=== PATIENT | male | born 1940 | race Caucasian/White ===

== ENCOUNTER 2018-06-13 01:45 | Inpatient (IN) | payer MEDICARE, OTHER ==
[2018-06-13] MEDS ORDERED: SOD CHLORIDE 0.9% 1,000 ML IV (02:45)
[2018-06-13] MEDS ORDERED: NACL 0.9% 3 ML SYG IV (03:00)
[2018-06-13] MEDS ORDERED: ACETAMINOPHEN 325 MG TAB PO (03:00)
[2018-06-13] MEDS ORDERED: ONDANSETRON 4 MG INJ IV (03:00)
[2018-06-13 04:36] LABS: ADD MAN DIFF? NO
[2018-06-13 04:39] LABS: WHITE BLOOD COUNT 8.7 10^3/ul (4.8-10.8)
[2018-06-13 04:39] LABS: ABNORMAL IP MESSAGE 1; BASOPHILS % 0.1 % (0.0-2.0); HEMATOCRIT 40.4 % (42.0-52.0); HEMOGLOBIN 13.3 g/dl (14.0-18.0); LYMPHOCYTES # 0.6 10^3/ul (0.8-2.9); LYMPHOCYTES % 6.6 % (15.0-51.0); MEAN CORPUSCULAR HEMOGLOBIN 30.7 pg (29.0-33.0); MEAN CORPUSCULAR HGB CONC 32.9 g/dl (32.0-37.0); MEAN CORPUSCULAR VOLUME 93.3 fl (82.0-101.0); MEAN PLATELET VOLUME 11.9 fl (7.4-10.4); MONOCYTE # 0.4 10^3/ul (0.3-0.9); MONOCYTES % 4.4 % (0.0-11.0); NEUTROPHIL # 7.6 10^3/ul (1.6-7.5); NEUTROPHILS % 87.8 % (39.0-77.0); NUCLEATED RED BLOOD CELLS% 0.2 /100WBC (0.0-0.0); PLATELET COUNT 258 10^3/UL (140-415); POSITIVE DIFF @See below; RED BLOOD COUNT 4.33 10^6/ul (4.70-6.10); RED CELL DISTRIBUTION WIDTH 20.5 % (11.5-14.5)
[2018-06-13 05:00] LABS: ALANINE AMINOTRANSFERASE 42 IU/L (13-69); ALBUMIN 2.8 g/dl (3.3-4.9); ALBUMIN/GLOBULIN RATIO 0.93; ALKALINE PHOSPHATASE 43 IU/L (42-121); ANION GAP 14 (8-16); ASPARTATE AMINO TRANSFERASE 39 IU/L (15-46); BILIRUBIN,INDIRECT 0.7 mg/dl (0-1.1); BILIRUBIN,TOTAL 0.7 mg/dl (0.2-1.3); BLOOD UREA NITROGEN 59 mg/dl (7-20); CALCIUM 7.7 mg/dl (8.4-10.2); CARBON DIOXIDE 21 mmol/L (21-31); CHLORIDE 119 mmol/L (97-110); CHOL/HDL RATIO 4.4 RATIO; CHOLESTEROL 93 mg/dl (100-200); CREATININE 1.53 mg/dl (0.61-1.24); GLUCOSE 107 mg/dl (70-220); HDL CHOLESTEROL 21 mg/dl (31-75); LDL CHOLESTEROL,CALCULATED 40 mg/dl; MAGNESIUM 2.9 mg/dl (1.7-2.5); SODIUM 151 mmol/L (135-144); TOTAL PROTEIN 5.8 g/dl (6.1-8.1); TRIGLYCERIDES 162 mg/dl (0-149)
[2018-06-13] MEDS: SOD CHLORIDE 0.9% 1,000 ML IV (05:31)
[2018-06-13] MEDS: DEXTROSE 5% 1,000 ML IV (05:31)
[2018-06-13 05:49] LABS: POTASSIUM 2.9 mmol/L (3.5-5.1)
[2018-06-13 05:53] LABS: HEMOGLOBIN A1C 5.8 % (0-5.9)
[2018-06-13] MEDS: CEFTRIAXONE 2 GM/50 ML (PMX) 50 ML IVPB (05:56)
[2018-06-13] MEDS ORDERED: PANTOPRAZOLE 40 MG INJ IV (06:00)
[2018-06-13 06:31] LABS: THYROID STIMULATING HORMONE 0.124 MIU/L (0.465-4.680)
[2018-06-13] MEDS: OCTREOTIDE 1 MG in DEXTROSE 5% 95 ML IV (06:31)
[2018-06-13] MEDS: OCTREOTIDE 50 MCG in SOD CHLORIDE 0.9% 50 ML IVPB (06:31)
[2018-06-13] MEDS: PANTOPRAZOLE IV 80 MG in SOD CHLORIDE 0.9% 100 ML IVPB (06:52)
[2018-06-13] MEDS: PANTOPRAZOLE IV 80 MG in SOD CHLORIDE 0.9% 100 ML IV ×2 (06:52→18:11)
[2018-06-13 09:03] LABS: ADD MAN DIFF? NO
[2018-06-13] MEDS: POTASSIUM CHLORIDE 100 ML IVPB ×4 (09:11→13:53)
[2018-06-13 09:25] LABS: ABNORMAL IP MESSAGE 1; BASOPHILS % 0.3 % (0.0-2.0); HEMATOCRIT 42.7 % (42.0-52.0); HEMOGLOBIN 13.9 g/dl (14.0-18.0); LYMPHOCYTES # 0.4 10^3/ul (0.8-2.9); LYMPHOCYTES % 4.9 % (15.0-51.0); MEAN CORPUSCULAR HEMOGLOBIN 30.3 pg (29.0-33.0); MEAN CORPUSCULAR HGB CONC 32.6 g/dl (32.0-37.0); MEAN CORPUSCULAR VOLUME 93.2 fl (82.0-101.0); MONOCYTE # 0.5 10^3/ul (0.3-0.9); MONOCYTES % 5.1 % (0.0-11.0); NEUTROPHIL # 7.9 10^3/ul (1.6-7.5); NEUTROPHILS % 87.5 % (39.0-77.0); NUCLEATED RED BLOOD CELLS% 0.3 /100WBC (0.0-0.0); PLATELET COUNT 224 10^3/UL (140-415); POSITIVE DIFF @See below; RED BLOOD COUNT 4.58 10^6/ul (4.70-6.10); RED CELL DISTRIBUTION WIDTH 20.4 % (11.5-14.5)
[2018-06-13] MEDS: D5W + KCL 20 MEQ 1,000 ML IV ×2 (09:39→20:01)
[2018-06-13 09:43] LABS: LACTIC ACID 1.7 mmol/L (0.5-2.0)
[2018-06-13 10:24] LABS: OSMOLALITY 331 mOsm/kg (280-295)
[2018-06-13 14:12] LABS: ADD MAN DIFF? NO
[2018-06-13 14:15] LABS: WHITE BLOOD COUNT 8.9 10^3/ul (4.8-10.8)
[2018-06-13 14:15] LABS: ABNORMAL IP MESSAGE 1; BASOPHILS % 0.2 % (0.0-2.0); HEMATOCRIT 41.7 % (42.0-52.0); HEMOGLOBIN 12.9 g/dl (14.0-18.0); LYMPHOCYTES # 0.4 10^3/ul (0.8-2.9); LYMPHOCYTES % 4.1 % (15.0-51.0); MEAN CORPUSCULAR HEMOGLOBIN 30.4 pg (29.0-33.0); MEAN CORPUSCULAR HGB CONC 30.9 g/dl (32.0-37.0); MEAN CORPUSCULAR VOLUME 98.1 fl (82.0-101.0); MEAN PLATELET VOLUME 11.3 fl (7.4-10.4); MONOCYTE # 0.4 10^3/ul (0.3-0.9); NEUTROPHILS % 89.9 % (39.0-77.0); NUCLEATED RED BLOOD CELLS% 0.4 /100WBC (0.0-0.0); PLATELET COUNT 192 10^3/UL (140-415); POSITIVE DIFF @See below; RED BLOOD COUNT 4.25 10^6/ul (4.70-6.10); RED CELL DISTRIBUTION WIDTH 20.5 % (11.5-14.5)
[2018-06-13 14:31] LABS: ANION GAP 12 (8-16); BLOOD UREA NITROGEN 42 mg/dl (7-20); CALCIUM 7.2 mg/dl (8.4-10.2); CARBON DIOXIDE 19 mmol/L (21-31); CHLORIDE 120 mmol/L (97-110); CREATININE 1.02 mg/dl (0.61-1.24); GLUCOSE 170 mg/dl (70-220); POTASSIUM 3.3 mmol/L (3.5-5.1); SODIUM 148 mmol/L (135-144)
[2018-06-13] MEDS: ATORVASTATIN 80 MG TAB PO (20:39)
[2018-06-13 21:35] LABS: ADD MAN DIFF? NO
[2018-06-13 21:38] LABS: ABNORMAL IP MESSAGE 1; HEMATOCRIT 30.6 % (42.0-52.0); HEMOGLOBIN 9.7 g/dl (14.0-18.0); LYMPHOCYTES # 0.3 10^3/ul (0.8-2.9); LYMPHOCYTES % 5.7 % (15.0-51.0); MEAN CORPUSCULAR HGB CONC 31.7 g/dl (32.0-37.0); MEAN CORPUSCULAR VOLUME 94.7 fl (82.0-101.0); MEAN PLATELET VOLUME 11.4 fl (7.4-10.4); MONOCYTE # 0.2 10^3/ul (0.3-0.9); MONOCYTES % 3.7 % (0.0-11.0); NEUTROPHIL # 4.8 10^3/ul (1.6-7.5); NUCLEATED RED BLOOD CELLS # 0.1 10^3/ul (0.0-0.0); NUCLEATED RED BLOOD CELLS% 0.9 /100WBC (0.0-0.0); PLATELET COUNT 144 10^3/UL (140-415); POSITIVE DIFF @See below; RED BLOOD COUNT 3.23 10^6/ul (4.70-6.10); RED CELL DISTRIBUTION WIDTH 20.2 % (11.5-14.5)
[2018-06-13 21:38] LABS: WHITE BLOOD COUNT 5.4 10^3/ul (4.8-10.8)
[2018-06-13 23:05] LABS: ADD UMIC YES; UR ASCORBIC ACID NEGATIVE (NEGATIVE); UR BILIRUBIN (Dip) NEGATIVE (NEGATIVE); UR BLOOD (Dip) 1+ mg/dL (NEGATIVE); UR CLARITY CLEAR (CLEAR); UR COLOR AMBER (YELLOW); UR GLUCOSE (Dip) 1+ mg/dL (NEGATIVE); UR KETONES (Dip) NEGATIVE (NEGATIVE); UR LEUKOCYTE ESTERASE (Dip) TRACE Leu/ul (NEGATIVE); UR MUCUS FEW /HPF (NONE SEEN); UR NITRITE (Dip) NEGATIVE (NEGATIVE); UR RBC 2 /HPF (0-5); UR TOTAL PROTEIN (Dip) NEGATIVE (NEGATIVE); UR UROBILINOGEN (Dip) 2+ mg/dL (NEGATIVE); UR WBC 23 /HPF (0-5)
[2018-06-13 23:11] LABS: SODIUM,URINE RANDOM 28 mmol/L (30-90)
[2018-06-13 23:13] LABS: OSMOLALITY,URINE 741 mOsm/kg (250-1200)
[2018-06-14] MEDS: OCTREOTIDE 1 MG in DEXTROSE 5% 95 ML IV (00:55)
[2018-06-14] MEDS: PANTOPRAZOLE IV 80 MG in SOD CHLORIDE 0.9% 100 ML IV ×2 (03:00→13:00)
[2018-06-14] MEDS: CEFTRIAXONE 2 GM/50 ML (PMX) 50 ML IVPB (04:10)
[2018-06-14] MEDS: D5W + KCL 20 MEQ 1,000 ML IV ×3 (04:11→13:29)
[2018-06-14 07:01] LABS: ANION GAP 9 (8-16); BLOOD UREA NITROGEN 24 mg/dl (7-20); CALCIUM 7.4 mg/dl (8.4-10.2); CARBON DIOXIDE 26 mmol/L (21-31); CHLORIDE 114 mmol/L (97-110); CREATININE 0.78 mg/dl (0.61-1.24); GLUCOSE 147 mg/dl (70-220); POTASSIUM 3.7 mmol/L (3.5-5.1); SODIUM 145 mmol/L (135-144)
[2018-06-14 07:06] LABS: MAGNESIUM 2.5 mg/dl (1.7-2.5)
[2018-06-14 07:06] LABS: PHOSPHORUS 1.5 mg/dl (2.5-4.9)
[2018-06-14] MEDS: PROPOFOL 20 ML (14:56)
[2018-06-14] MEDS: PANTOPRAZOLE 40 MG INJ IV (15:07)
[2018-06-14] MEDS ORDERED: ONDANSETRON 4 MG INJ IV (15:30)
[2018-06-14] MEDS ORDERED: DIPHENHYDRAMINE 50 MG INJ IV (15:30)
[2018-06-14] MEDS ORDERED: hydrALAzine 20 MG INJ IV (15:30)
[2018-06-14] MEDS ORDERED: METOCLOPRAMIDE 10 MG INJ IV (15:30)
[2018-06-14] MEDS ORDERED: LABETALOL HCL 20MG INJ IV (15:30)
[2018-06-14] MEDS ORDERED: MEPERIDINE 25 MG INJ IV (15:30)
[2018-06-14] MEDS ORDERED: MIDAZOLAM 1 MG/ML 2 ML INJ IV (15:30)
[2018-06-14] MEDS ORDERED: EPHEDrine SULFATE 50 MG/5 ML SYG IV (15:30)
[2018-06-14] MEDS ORDERED: FENTAnyl 50 MCG/ML VIAL IV ×3 (15:30)
[2018-06-14] MEDS: POTASSIUM PHOSPHATE 15 MM in SOD CHLORIDE 0.9% 250 ML IVPB (17:00)
[2018-06-14] MEDS: ATORVASTATIN 80 MG TAB PO (22:12)
[2018-06-15] MEDS: D5W + KCL 20 MEQ 1,000 ML IV ×2 (01:00→10:45)
[2018-06-15] MEDS: CEFTRIAXONE 2 GM/50 ML (PMX) 50 ML IVPB (05:16)
[2018-06-15 08:43] LABS: ADD MAN DIFF? NO
[2018-06-15 08:52] LABS: ABNORMAL IP MESSAGE 1; EOSINOPHILS % 0.4 % (0.0-7.0); HEMATOCRIT 31.8 % (42.0-52.0); HEMOGLOBIN 10.2 g/dl (14.0-18.0); LYMPHOCYTES # 0.3 10^3/ul (0.8-2.9); LYMPHOCYTES % 6.8 % (15.0-51.0); MEAN CORPUSCULAR HEMOGLOBIN 30.5 pg (29.0-33.0); MEAN CORPUSCULAR HGB CONC 32.1 g/dl (32.0-37.0); MEAN CORPUSCULAR VOLUME 95.2 fl (82.0-101.0); MEAN PLATELET VOLUME 11.9 fl (7.4-10.4); MONOCYTE # 0.2 10^3/ul (0.3-0.9); MONOCYTES % 3.7 % (0.0-11.0); NEUTROPHIL # 4.2 10^3/ul (1.6-7.5); NEUTROPHILS % 87.7 % (39.0-77.0); NUCLEATED RED BLOOD CELLS% 0.4 /100WBC (0.0-0.0); PLATELET COUNT 101 10^3/UL (140-415); POSITIVE DIFF @See below; RED BLOOD COUNT 3.34 10^6/ul (4.70-6.10); RED CELL DISTRIBUTION WIDTH 19.7 % (11.5-14.5)
[2018-06-15 08:52] LABS: WHITE BLOOD COUNT 4.8 10^3/ul (4.8-10.8)
[2018-06-15 09:45] LABS: ANION GAP 8 (8-16); BLOOD UREA NITROGEN 13 mg/dl (7-20); CARBON DIOXIDE 27 mmol/L (21-31); CHLORIDE 108 mmol/L (97-110); CREATININE 0.64 mg/dl (0.61-1.24); GLUCOSE 129 mg/dl (70-220); POTASSIUM 3.7 mmol/L (3.5-5.1); SODIUM 139 mmol/L (135-144)
[2018-06-15] MEDS: FLUCONAZOLE 200 MG TAB PO (17:38)
[2018-06-15] MEDS: ASPIRIN 81 MG TAB PO (17:38)
[2018-06-15] MEDS: TRIMETHOPRIM/SULFAMETHOX (DS) TAB PO (17:39)
[2018-06-15] MEDS ORDERED: BENZOCAINE 20% 56 ML SPRAY TOP (18:00)
[2018-06-15] MEDS: ATORVASTATIN 80 MG TAB PO (21:09)
[2018-06-15] MEDS: PHENOL 1.4% SOLN 180 ML BTL MT (21:16)
[2018-06-16 07:27] LABS: ANION GAP 9 (8-16); BLOOD UREA NITROGEN 11 mg/dl (7-20); CALCIUM 6.9 mg/dl (8.4-10.2); CARBON DIOXIDE 28 mmol/L (21-31); CHLORIDE 105 mmol/L (97-110); GLUCOSE 76 mg/dl (70-220); POTASSIUM 3.6 mmol/L (3.5-5.1); SODIUM 138 mmol/L (135-144)
[2018-06-16 07:32] LABS: MAGNESIUM 1.8 mg/dl (1.7-2.5)
[2018-06-16 07:32] LABS: PHOSPHORUS 1.5 mg/dl (2.5-4.9)
[2018-06-16 08:12] LABS: HIV 1&2 ANTIBODY NEGATIVE (NEGATIVE)
[2018-06-16] MEDS: ASPIRIN 81 MG TAB PO (08:25)
[2018-06-16] MEDS: FLUCONAZOLE 200 MG TAB PO (08:26)
[2018-06-16] MEDS: TRIMETHOPRIM/SULFAMETHOX (DS) TAB PO ×2 (08:26→21:28)
[2018-06-16] MEDS: MAGNESIUM OXIDE 400 MG TAB PO (09:00)
[2018-06-16] MEDS: ATORVASTATIN 80 MG TAB PO (21:28)
[2018-06-16] MEDS: POTASSIUM PHOSPHATE 15 MM in SOD CHLORIDE 0.9% 250 ML IVPB (22:27)
[2018-06-17 06:10] LABS: ANION GAP 10 (8-16); BLOOD UREA NITROGEN 11 mg/dl (7-20); CALCIUM 7.2 mg/dl (8.4-10.2); CARBON DIOXIDE 27 mmol/L (21-31); CHLORIDE 102 mmol/L (97-110); CREATININE 0.52 mg/dl (0.61-1.24); GLUCOSE 73 mg/dl (70-220); POTASSIUM 4.1 mmol/L (3.5-5.1); SODIUM 135 mmol/L (135-144)
[2018-06-17] MEDS: ASPIRIN 81 MG TAB PO (08:57)
[2018-06-17] MEDS: FLUCONAZOLE 200 MG TAB PO (08:57)
[2018-06-17] MEDS: TRIMETHOPRIM/SULFAMETHOX (DS) TAB PO ×2 (08:57→20:52)
[2018-06-17] MEDS: ATORVASTATIN 80 MG TAB PO (20:52)
[2018-06-18 07:11] LABS: BLOOD UREA NITROGEN 14 mg/dl (7-20); CALCIUM 7.6 mg/dl (8.4-10.2); CARBON DIOXIDE 23 mmol/L (21-31); CREATININE 0.62 mg/dl (0.61-1.24); GLUCOSE 56 mg/dl (70-220); POTASSIUM 4.1 mmol/L (3.5-5.1); SODIUM 134 mmol/L (135-144)
[2018-06-18 07:22] LABS: MAGNESIUM 1.7 mg/dl (1.7-2.5)
[2018-06-18 07:22] LABS: PHOSPHORUS 2.4 mg/dl (2.5-4.9)
[2018-06-18 07:23] LABS: ANION GAP 14 (8-16); CHLORIDE 101 mmol/L (97-110)
[2018-06-18] MEDS: ASPIRIN 81 MG TAB PO (08:21)
[2018-06-18] MEDS: TRIMETHOPRIM/SULFAMETHOX (DS) TAB PO (08:21)
[2018-06-18] MEDS: FLUCONAZOLE 200 MG TAB PO (08:21)
== END 2018-06-18 19:37 | DRG 871 ==
LOC: TEL 01:45 → PP2 06-16 23:47
PROC: 0DB28ZX Excision of Middle Esophagus, Via Natural or Artificial Opening Endoscopic, Diagnostic (ICD-10-PCS; principal; 2018-06-14 14:15)
DX: A41.9 Sepsis, unspecified organism (principal); G92 Toxic encephalopathy; N17.0 Acute kidney failure with tubular necrosis; E87.2 Acidosis; E87.0 Hyperosmolality and hypernatremia; N39.0 Urinary tract infection, site not specified; E87.1 Hypo-osmolality and hyponatremia; K92.0 Hematemesis; B37.81 Candidal esophagitis; E83.39 Other disorders of phosphorus metabolism; E86.0 Dehydration; R65.20 Severe sepsis without septic shock; Z89.612 Acquired absence of left leg above knee; E87.6 Hypokalemia; K44.9 Diaphragmatic hernia without obstruction or gangrene; Z89.511 Acquired absence of right leg below knee; Z99.3 Dependence on wheelchair; Z79.82 Long term (current) use of aspirin
CPT/HCPCS: 70551; 76775; 80048; 80053; 80061; 81001; 83036; 83605; 83735; 83930; 83935; 84100; 84300; 84443; 85025; 86703; 87081; 87086; 88305; 88312; 88313; 92526; 92610; 97163; 97167; 97530